=== PATIENT | female | born 2000 | race Caucasian/White ===

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

== ENCOUNTER 2022-11-28 17:49 | Emergency (ER) | payer OTHER ==
[2022-11-28 17:56] VITALS: BP 133/79; RESP 18; TEMP 98.2; BMI 31.9
[2022-11-28] MEDS ORDERED: ONDANSETRON *ODT* 4 MG TABLET SL ONE (18:39)
[2022-11-28] MEDS ORDERED: ONDANSETRON *ODT* 4 MG TABLET ONE (18:40)
[2022-11-28 18:41] VITALS: PULSE 115
[2022-11-28 19:38] LABS: URINE APPEARANCE CLEAR; URINE BILIRUBIN NEGATIVE (NEGATIVE); URINE COLOR YELLOW; URINE GLUCOSE (UA) NEGATIVE (NEGATIVE); URINE KETONE 40 mg/dl (NEGATIVE)
[2022-11-28 19:39] LABS: PH,URINE 6.5 (5.0-8.0); URINE LEUK ESTERASE TRACE (NEGATIVE); URINE NITRITE NEGATIVE (NEGATIVE); URINE PROTEIN NEGATIVE (NEGATIVE); URINE UROBILINOGEN 0.2 mg/dL (0.2-1.0)
== END 2022-11-28 20:04 | disposition home or self-care (01) ==
LOC: JER 17:49 → JERFT 17:49
DX: O21.9 Vomiting of pregnancy, unspecified (principal); O26.891 Other specified pregnancy related conditions, first trimester; R11.0 Nausea; R19.7 Diarrhea, unspecified; R51.9 Headache, unspecified; Z3A.10 10 weeks gestation of pregnancy; Z20.822 Contact with and (suspected) exposure to COVID-19
CPT/HCPCS: 0241U-QW; 81003; 87086; 87186; 93005; 93010; 99284-25; Q0162

== ENCOUNTER 2023-02-17 23:59 | Emergency (ER) | payer OTHER ==
[2023-02-18 01:10] LABS: HEMATOCRIT 37.1 % (32.4-45.2); HEMOGLOBIN 12.2 GM/dL (10.7-15.3); MEAN PLT VOLUME 7.3 fl (7.5-11.1); PLATELET COUNT 302 10^3/uL (134-434); RBC 4.21 M/mm3 (3.60-5.2); RDW 13.9 % (11.6-15.6); WHITE BLOOD COUNT 9.6 K/mm3 (4.0-10.0)
[2023-02-18 01:13] VITALS: BP 134/92; PULSE 118; RESP 20; TEMP 98.1; BMI 32.8
[2023-02-18 01:38] LABS: PH,URINE 6.5 (5.0-8.0); URINE APPEARANCE CLEAR; URINE BILIRUBIN NEGATIVE (NEGATIVE); URINE COLOR YELLOW; URINE GLUCOSE (UA) NEGATIVE (NEGATIVE); URINE KETONE NEGATIVE (NEGATIVE); URINE LEUK ESTERASE NEGATIVE (NEGATIVE); URINE NITRITE NEGATIVE (NEGATIVE); URINE PROTEIN NEGATIVE (NEGATIVE); URINE UROBILINOGEN 0.2 mg/dL (0.2-1.0)
== END 2023-02-18 03:45 | disposition home or self-care (01) ==
LOC: JER 23:59
DX: O26.892 Other specified pregnancy related conditions, second trimester (principal); R06.02 Shortness of breath; R00.0 Tachycardia, unspecified; O99.342 Other mental disorders complicating pregnancy, second trimester; F41.9 Anxiety disorder, unspecified; Z3A.19 19 weeks gestation of pregnancy
CPT/HCPCS: 36415; 81003; 84443; 84702; 85027; 85379; 86850; 86900; 86901; 87086; 99283-25

== ENCOUNTER 2023-04-07 21:33 | Emergency (ER) | payer OTHER ==
[2023-04-07 21:38] VITALS: RESP 18; BMI 33.6
[2023-04-07] MEDS ORDERED: SODIUM CHLORIDE 1,500 ML IV STA (21:44)
[2023-04-07 22:40] LABS: HEMATOCRIT 38.7 % (32.4-45.2); HEMOGLOBIN 13.1 GM/dL (10.7-15.3); MCH 29.9 pg (25.7-33.7); MCHC 33.7 g/dl (32.0-36.0); MEAN CELL VOLUME 88.6 fl (80-96); PLATELET COUNT 259 10^3/uL (134-434); RBC 4.37 M/mm3 (3.60-5.2); RDW 13.5 % (11.6-15.6); WHITE BLOOD COUNT 7.4 K/mm3 (4.0-10.0)
[2023-04-07 22:51] LABS: URINE APPEARANCE CLEAR; URINE BILIRUBIN NEGATIVE (NEGATIVE); URINE COLOR YELLOW; URINE GLUCOSE (UA) NEGATIVE (NEGATIVE); URINE KETONE NEGATIVE (NEGATIVE); URINE LEUK ESTERASE NEGATIVE (NEGATIVE); URINE NITRITE NEGATIVE (NEGATIVE); URINE PROTEIN NEGATIVE (NEGATIVE); URINE UROBILINOGEN 0.2 mg/dL (0.2-1.0)
[2023-04-07 22:58] LABS: CHLORIDE 106 mmol/L (98-107); POTASSIUM 4.2 mmol/L (3.5-5.1); SODIUM 139 mmol/L (136-145)
[2023-04-07 23:00] LABS: CALCIUM 8.7 mg/dL (8.5-10.1)
[2023-04-07 23:01] LABS: ANION GAP 6 mmol/L (4-13); BLOOD UREA NITROGEN 9.5 mg/dL (7-18); CO2 27 mmol/L (21-32); GLUCOSE,RANDOM 110 mg/dL (74-106)
[2023-04-07 23:04] LABS: CREATININE 0.5 mg/dL (0.55-1.3); SGOT/AST 33 U/L (15-37); SGPT/ALT 45 U/L (13-61)
[2023-04-07 23:06] LABS: BILIRUBIN,TOTAL 0.2 mg/dL (0.2-1); TOT PROT 6.8 g/dl (6.4-8.2)
[2023-04-07 23:07] LABS: ALK PHOS 101 U/L (45-117)
[2023-04-08 00:41] VITALS: BP 122/82; PULSE 109; TEMP 98
== END 2023-04-08 01:38 | disposition home or self-care (01) ==
LOC: JER 21:33
PROC: 3E0337Z Introduction of Electrolytic and Water Balance Substance into Peripheral Vein, Percutaneous Approach (ICD-10-PCS; principal; 2023-04-07)
PROC: 3E0337Z Introduction of Electrolytic and Water Balance Substance into Peripheral Vein, Percutaneous Approach (ICD-10-PCS; 2023-04-07)
PROC: 3E0337Z Introduction of Electrolytic and Water Balance Substance into Peripheral Vein, Percutaneous Approach (ICD-10-PCS; 2023-04-07)
DX: R42 Dizziness and giddiness (principal); R07.9 Chest pain, unspecified; R06.02 Shortness of breath; R10.30 Lower abdominal pain, unspecified; U07.1 COVID-19
CPT/HCPCS: 0241U-QW; 36415; 80053; 81003; 82550; 84484; 85027; 85379; 93005; 93010; 99284-25